=== PATIENT | female | born 1955 | race Caucasian/White ===

== ENCOUNTER 2024-07-29 11:49 | Emergency (ER) | payer OTHER, SELFPAY ==
[2024-07-29 11:59] VITALS: BP 114/66
--- NOTE | 2024-07-29 12:52 | ED.GENMED ---
History of Present Illness
General
Chief Complaint: Fall
Time Seen by Provider: 07/29/24 12:52
History of Present Illness
History of Present Illness:
TIME OF INITIAL ENCOUNTER: 12:55 PM
HPI: 3 nights ago, the patient became dizzy and then fell striking her left flank region onto the seat of a chair. Of note, the patient is visiting from [place] and does not speak any [place]. She had a sleepless night that night, went to urgent
care the following day, reports negative x-rays including no sign of rib fracture and was started on NSAIDs and Lidoderm patch. This has not helped. Daughter states that her pain has been worsening. She is concerned of a more serious injury.
EXAM:
GENERAL: Well appearing but in mild to moderate distress related the pain in the torso on the left side
CERVICAL SPINE: No midline c-spine tenderness with excellent AROM
HEAD: No evidence of craniofacial trauma
CHEST: Moderate posterolateral rib tenderness inferiorly, normal heart sounds
LUNGS: Equal lung sounds, no respiratory distress,
ABDOMEN: Mild left upper quadrant tenderness, otherwise there is no tenderness on the right side and left lower quadrant
EXTREMITIES: Normal active range of motion, no tenderness
NEURO: Excellent strength all extremities, appropriate mental status, normal speech/language
NUMBER AND COMPLEXITY OF PROBLEMS ADDRESSED AT THE ENCOUNTER
� Chronic conditions affecting care: Has had appendectomy, NIDDM, hypertension
� Acute Exacerbation and/or Progression of Chronic Illness: This is an acute problem
� Differential Diagnosis includes: Chest/abdominal wall contusion, rib fracture, splenic hematoma, pneumothorax, hemopneumothorax
AMOUNT AND/OR COMPLEXITY OF DATA TO BE REVIEWED AND ANALYZED
� I performed an independent evaluation of and my interpretation is:
EKG:
CT: I personally reviewed CT imaging and agree with radiologist interpretation that there is a left 11th rib fracture, no evidence for splenic involvement or hemopneumothorax
X-rays:
Laboratory Studies: White count normal, hemoglobin 11.6, BUN 25 with creatinine normal
Other:
� Review of other/old records: No old records available for review in [facility]
� Clinical information was obtained by an independent historian: I spoke to the daughter at bedside who is translating without any difficulty
� Prescriptions/Medications Considered but not given:
� Further testing considered but not performed:
RISK OF COMPLICATIONS AND/OR MORBIDITY OR MORTALITY OF PATIENT MANAGEMENT
� Social determinants of health affecting care: Resides in [place] and is just visiting through August 12
� Discussion with other providers:
� Escalation of care including admission/observation vs risk of discharge considered: The patient is already on meloxicam. Will give incentive spirometer and short course of narcotic analgesia.
ANY OTHER UPDATES:
3:45 PM: The patient appears fairly comfortable on reassessment
Phy Exam
Physical Exam
Physical Exam:
See HPI
Course
Orders/Labs/Results
Orders:
Orders
07/29/24 13:06
Chest/Abd/Pelvis w Contrast CT [CT Chest/abd/pel W Iv Cont] Urgent
Comment:
Reason For Exam: L Flank / LUQ trauma 3d ago worsening pain
07/29/24 13:07
0.9% Sodium Chloride 500 ml [Nss] 500 ml IV BOLUS
Acetaminophen [Tylenol] 1,000 mg PO NOW STA
07/29/24 13:27
Basic Metabolic Panel Urgent
Complete Blood Count/With Diff Urgent
07/29/24 15:48
Incentive Spirometry [Rx Incentive Spirometry] [RESP] Urgent
Frequency: q1h while awake
Abnormal Lab Results
07/29/24
13:27
RBC 3.96 L 10^6/uL
(4.20-5.40)
Hgb 11.6 L g/dL
(12.0-16.0)
Hct 34.9 L %
(37.0-47.0)
Monocytes % 9.4 H %
(1.7-9.3)
BUN 25 H mg/dl
(7-17)
07/29/24 13:27
07/29/24 13:27
Vital Signs
Initial and Last Documented VS:
Initial Vital Signs
Temp Pulse Resp BP Pulse Ox
36.1 C 61 16 114/66 98
07/29/24 11:59 07/29/24 11:59 07/29/24 11:59 07/29/24 11:59 07/29/24 11:59
Last Documented Vital Signs
Temp Pulse Resp BP Pulse Ox
36.1 C 61 16 114/66 98
07/29/24 11:59 07/29/24 11:59 07/29/24 11:59 07/29/24 11:59 07/29/24 11:59
*Critical Care Note
Total Time (30-74mins, 75-104mins- exclusive of procedures): Not Applicable
ED Attending Note
-
Portions of this chart may have been created with voice recognition software.� Occasional wrong word or��sound alike� substitutions may have occurred due to the inherent limitations of voice recognition software.
Discharge Plan
Departure
Patient Disposition: Home (Routine Discharge)
Date of Disposition: 07/29/24
Time of Disposition: 15:45
Patient with high blood pressure during this ER visit?: Yes
Discharge Problem:
Closed rib fracture
Instructions: BLOOD PRESSURE, Rib Fracture
Prescriptions:
New
oxycodone-acetaminophen [Percocet] 5-325 mg tablet
1 - 2 tab PO Q6HPRN PRN (Reason: pain) Qty: 14 0RF
Referrals:
NONE,* [Family Provider] -
Activity Restrictions/Additional Instructions:
CAT SCAN FINDINGS:
CHEST
Lungs/Airways: No lung laceration or contusion. Bibasilar hypoventilatory changes.
Pleura: No pleural fluid or pneumothorax.
Vessels: No evidence of acute traumatic injury to the aorta or great vessels.
Heart: No significant pericardial fluid. The heart is not enlarged. Mild mitral annular calcifications. Mild coronary artery calcifications.
Mediastinum and [place]: No abnormal mediastinal fluid or gas.
Soft Tissues: No focal fluid collections.
Bones: There is a minimally displaced posterior left 11th rib fracture with a very small adjacent soft tissue hematoma (7 mm). Hypoplastic 12th ribs.
ABDOMEN AND PELVIS
Liver: No laceration, hematoma, or contusion.
Gallbladder/Bile ducts: Unremarkable.
Adrenals: No adrenal hemorrhage.
Kidneys: No renal laceration or yaneli-renal fluid collection. Subcentimeter hypodensities bilaterally, too small to accurately characterize however may represent small cysts.
Pancreas: Normal enhancement without yaneli-pancreatic fluid collections. Mild fatty atrophy.
Spleen: No laceration or contusion.
Bowel: No wall thickening, luminal dilation, or abnormal enhancement.
Peritoneum: No free intraperitoneal fluid or gas. No mesenteric fluid collections.
Retroperitoneal: No retroperitoneal gas or fluid collections.
Reproductive Organs: Atrophic uterus.
Urinary Bladder: Normal contour without wall thickening.
Vasculature: No evidence acute vascular injury in the abdomen or pelvis. Moderate atherosclerotic calcifications of the aorta and branch vessels.
Abdominal Wall: No focal fluid collection. Small fat-containing umbilical hernia. Multiple small, partially calcified nodule within the posterior gluteal soft tissues consistent with injection granulomas.
Bones: No acute fracture. There is mild levoconvex curvature of the lumbar spine with multilevel mild degenerative changes. Mild degenerative changes of the bilateral hips.
IMPRESSION:
There is a minimally displaced left posterior 11th rib fracture with a small adjacent hematoma. No pneumothorax.
There is no evidence of acute traumatic injury in the abdomen or pelvis.
I recommend to take something like MiraLAX to help prevent constipation. You can continue meloxicam as well. Use incentive spirometer multiple times per day to help exercise the lungs. This helps to prevent pneumonia.
Interventions
Interventions:
*Risk Screen - Suicide Last Done: 07/29/24 11:59
*General Assessment Last Done: 07/29/24 13:24
*Neglect/Abuse Screening Last Done: 07/29/24 11:59
ED-Musculoskeletal Assessment Last Done: 07/29/24 13:41
ED- Neurological Assessment Last Done: 07/29/24 13:40
Discharge Date and Time
Print Language: BULGARIAN
[2024-07-29 13:23] VITALS: BMI 38.3
[2024-07-29] MEDS: TYLENOL 1000 MG PO (13:25)
[2024-07-29] MEDS: NSS 500 IV (13:26)
[2024-07-29 13:54] LABS: % Basophils 0.8 % (0-2); % Eosinophils 1.9 % (0-6); % Immature Granulocytes 0.3 % (0-0.5); % Lymphocytes 22.2 % (20.5-51.1); % Monocytes 9.4 % (1.7-9.3); % Neutrophils 65.4 % (42.2-75.2); Absolute Basophils 0.1 10^3/uL (0-0.2); Absolute Eosinophils 0.1 10^3/uL (0-0.7); Absolute Lymphocytes 1.4 10^3/uL (1.2-3.4); Absolute Monocytes 0.6 10^3/uL (0.1-0.6); Absolute Neutrophils 4.2 10^3/uL (1.4-6.5); Hematocrit 34.9 % (37.0-47.0); Hemoglobin 11.6 g/dL (12.0-16.0); Mean Corp Hgb Conc. 33.2 g/dL (33.0-37.0); Mean Corpuscular Hgb 29.3 pg (27.0-31.0); Mean Corpuscular Volume 88.1 fL (81.0-99.0); Mean Platelet Volume 9.4 fL (7.4-10.4); Nucleated Red Blood Cells % 0 %; Platelet Count 268 10^3/uL (130-400); Red Blood Cell Count 3.96 10^6/uL (4.20-5.40); Red Cell Dist. Width 12.7 % (11.5-14.5); White Blood Cell Count 6.4 10^3/uL (4.8-10.8)
[2024-07-29 14:17] LABS: Blood Urea Nitrogen 25 mg/dl (7-17); Calcium 8.9 mg/dl (8.4-10.2); Carbon Dioxide 24 mmol/L (22-30); Chloride 102 mmol/L (98-107); Estimated Creatinine Clearance 63 ml/min; Glucose 86 mg/dl (70-99); Sodium 138 mmol/L (135-145); eGFR > 60.00
== END 2024-07-29 16:18 | disposition home or self-care (01) ==
LOC: EMR 11:49
PROVIDERS: EMERGENCY PHYSICIAN Emergency Medicine
DX: S22.32XA Fracture of one rib, left side, initial encounter for closed fracture (principal); W19.XXXA Unspecified fall, initial encounter; I10 Essential (primary) hypertension; E11.9 Type 2 diabetes mellitus without complications
CPT/HCPCS: 99285; 96360; 71260; 74177; 80048; 85025; Q9967